=== PATIENT | female | born 1975 | race Caucasian/White ===

== ENCOUNTER 2016-12-30 08:23 | Day surgery (SDC) | payer BC ==
[2016-12-28 11:03] LABS: HEMATOCRIT 40.6 % (36.0-48.0); HEMOGLOBIN 13.8 g/dL (12.0-16.0)
[2016-12-28 11:14] LABS: A/G RATIO 0.9 (0.7-1.9); ALBUMIN 3.4 G/DL (3.5-5.0); ALKALINE PHOSPHATASE 85 U/L (45-117); BUN (BLOOD UREA NITROGEN) 9 MG/DL (6-23); CALCIUM, SERUM 8.4 MG/DL (8.5-10.4); CHLORIDE, SERUM 105 MMOL/L (96-112); CO2 (CARBON DIOXIDE) 28 MMOL/L (24-34); GFR AFRICAN AMERICAN 129 ML/MIN (>=60); GFR NON AFRICAN AMERICAN 112 ML/MIN (>=60); GLOBULIN 3.8 G/DL (2.5-4.1); GLUCOSE, SERUM 105 MG/DL (60-99); POTASSIUM, SERUM 4.1 MMOL/L (3.5-5.3); SGOT(AST) 15 U/L (5-40); SGPT(ALT) 33 U/L (5-65); SODIUM, SERUM 139 MMOL/L (135-148); TOTAL BILIRUBIN 0.4 MG/DL (0-1.2); TOTAL PROTEIN 7.2 G/DL (6.0-8.5)
--- NOTE | ~2016-12-30 | OP ---
Record Of Operation [place] [id number] [place]. [address] NAME: PHOEBE LOFTON : 71 STATUS : REG [facility]#: [id number] AGE: 41 ADM/REG DATE : 12/30/16 MR#: [id number] REPORT SERV DATE: 12/30/16 DICTATED BY: АНДРЕЙ AMARO DATE: 12/30/16 REPORT STATUS : Draft TRANSCRIBED BY: MODLuis DATE: 12/30/16 DATE OF PROCEDURE: 12/30/2016 PREOPERATIVE DIAGNOSES: 1. Cholelithiasis with chronic cholecystitis. 2. Diabetes mellitus type 2. 3. Morbid obesity. 4. Fatty liver. 5. Hypothyroidism. 6. Herpes zoster. POSTOPERATIVE DIAGNOSES: 1. Cholelithiasis with chronic cholecystitis. 2. Diabetes mellitus type 2. 3. Morbid obesity. 4. Fatty liver. 5. Hypothyroidism. 6. Herpes zoster. PROCEDURE: Laparoscopic cholecystectomy. ANESTHESIA: General. SURGEON: Андрей Amaro M.D. WELL TESTER: Rhianna. COMPLICATIONS: None. DRAINS: None. ESTIMATED BLOOD LOSS: 20 mL. FINDINGS: The patient was noted to have a thickened gallbladder wall with no ductal dilatation and normal preoperative liver function studies. Therefore, no cholangiogram was obtained. Her findings were consistent with cholelithiasis with chronic cholecystitis. OPERATIVE TECHNIQUE: The patient was brought to the operating room and placed on the table in supine position. She had preoperative IV antibiotics. She had sequential hose in place. She voided prior to the procedure. She underwent general endotracheal anesthesia and was prepped and draped in a sterile fashion and a time-out was completed. Local anesthesia was instilled to the periumbilical skin. A 15 blade knife was used to make incision through the umbilicus. The skin and fascia were elevated and a Veress needle was inserted and water drop test was safely performed. An 11 mm trocar was inserted through the umbilicus followed by the laparoscope. There was no evidence of Veress or trocar injury. The patient was then placed in reverse Trendelenburg and rolled to the left. An 11 mm subxiphoid and two 5 mm Record Of Operation [place] [address] P[facility] [place]. [address] NAME: PHOEBE LOFTON : 71 STATUS : REG [facility]#: [id number] AGE: 41 ADM/REG DATE : 12/30/16 MR#: [id number] REPORT SERV DATE: 12/30/16 DICTATED BY: АНДРЕЙ AMARO DATE: 12/30/16 REPORT STATUS : Draft TRANSCRIBED BY: MARIPOSA DATE: 12/30/16 right upper quadrant trocars were placed under direct visualization. The gallbladder fundus was grasped and elevated over the liver edge as the infundibulum was retracted inferolaterally. The gallbladder fundus was grasped and elevated over the liver edge. The patient was noted to have a markedly dilated gallbladder that was aspirated to allow ease of manipulation. The patient was noted to have significant adhesions of the infundibulum. These were taken down using blunt dissection as the fundus was elevated over the liver edge. After careful blunt dissection ensued with the Nohemy dissector, the cystic duct gallbladder junction was identified on its lateral aspect. It was then circumferentially dissected using blunt dissection until the cystic duct was seen in 360-degree fashion. Dissection more medial revealed the cystic artery. It was also bluntly dissected to its junction with the gallbladder. At this point, two clips were placed proximally and distally on both the duct and artery. A scissor was used to divide the structures between the clips. The gallbladder was then removed from the fossa using electrocautery hook and extracted through the umbilicus. The laparoscope and trocar were reinserted. Examination of the hepatic fossa was noted to be hemostatic. The clips were noted to be intact without encroachment of the common bile duct. There was no evidence of any bleeding, biliary spillage, or other visual abnormalities. At this point, all the instruments and trocars were removed under direct visualization as the pneumoperitoneum was aspirated. The umbilical fascia was reapproximated using a [id number] Vicryl suture. Skin edges were approximated using absorbable subcuticular Monocryl sutures. Dermabond was applied. She was extubated and taken to the recovery room in stable condition. All sponge and needle counts were reported correct. ANDRESSA/MARIPOSA Андрей Amaro M.D. / [id number] CC: Андрей Amaro M.D. [facility]
[~2016-12-30 08:23] MED LIST: FORTAMET500 MG PO; HYDROCHLOROT25 MG PO; OXYCODONE PO; PEP20 PO; SYN112 PO; VALTREX5 PO
== END 2016-12-30 14:51 | disposition home or self-care (01) ==
LOC: SDC 08:23
PROVIDERS: Surgery
PROC: 0FT44ZZ Resection of Gallbladder, Percutaneous Endoscopic Approach (ICD-10-PCS; principal; 2016-12-30 10:15)
DX: K80.10 Calculus of gallbladder with chronic cholecystitis without obstruction (principal); I10 Essential (primary) hypertension; E11.9 Type 2 diabetes mellitus without complications; K76.0 Fatty (change of) liver, not elsewhere classified; E03.9 Hypothyroidism, unspecified; B02.9 Zoster without complications; E66.01 Morbid (severe) obesity due to excess calories; Z68.42 Body mass index [BMI] 45.0-49.9, adult; Z79.84 Long term (current) use of oral hypoglycemic drugs; Z79.899 Other long term (current) drug therapy; Z87.891 Personal history of nicotine dependence; Z98.890 Other specified postprocedural states
CPT/HCPCS: 80053; 82962; 84703; 85014; 85018; 88304; 93005; A9270-GY; J0690; J1170; J1885; J2250; J2405; J2710; J3010; Q9967